=== PATIENT | female | born 1960 | race Caucasian/White ===

== ENCOUNTER 2020-09-22 08:26 | Emergency (ER) | payer BC ==
[~2020-09-22] VITALS: Ht 157.5 cm; Wt 83.9 kg
[~2020-09-22 08:26] MED LIST: Acetaminophen-1 EAC1 PO; PSEU30 PO; SULTRIDS PO; Ventolin/Prove6.7 GM; Zithromax250 MG PO; Zofran Odt8 MG SL
[2020-09-22] MEDS ORDERED: EPIPEN0.3 MG/0.3 IM ×2 (10:00→10:10)
[2020-09-22] MEDS ORDERED: Prednisone20 MG PO ×2 (10:00→10:10)
== END 2020-09-22 10:13 | disposition home or self-care (01) ==
LOC: ER 08:26
DX: T63.441A Toxic effect of venom of bees, accidental (unintentional), initial encounter (principal); R21 Rash and other nonspecific skin eruption; R06.02 Shortness of breath; F17.210 Nicotine dependence, cigarettes, uncomplicated
CPT/HCPCS: 99283

== ENCOUNTER 2020-09-23 21:01 | Emergency (ER) | payer OTHER, BC ==
[~2020-09-23] VITALS: Ht 157.5 cm; Wt 83.9 kg
[~2020-09-23 21:01] MED LIST changes: +EPIPEN0.3 MG/0.3 IM; +Prednisone20 MG PO
== END 2020-09-23 21:21 | disposition home or self-care (01) ==
LOC: ER 21:01
DX: Z02.79 Encounter for issue of other medical certificate (principal); F17.210 Nicotine dependence, cigarettes, uncomplicated
CPT/HCPCS: 99281